=== PATIENT | female | born 1940 | race Caucasian/White ===

== ENCOUNTER 2017-10-19 10:12 | Observation (INO) | payer MEDICARE, BC ==
[~2017-10-19] VITALS: Ht 162.6 cm; Wt 82.0 kg
[2017-10-19] VITALS (11 sets, daily range): BP systolic 126–174; BP diastolic 60–87; PULSE 54–65; RESP 16–20; TEMP 98–98.6; O2SAT 93–99
[2017-10-19] MEDS ORDERED: TRIA1CAP6 PO (10:39)
[2017-10-19] MEDS ORDERED: ASPI-516 CHEW (10:39)
[2017-10-19] MEDS ORDERED: SOTA80TA PO (10:39)
--- NOTE | 2017-10-19 10:54 | PD ---
HPI Chief Complaint: Chest Pain Time Seen by Provider: 10:21 Travel History International Travel<30 days: No Contact w/Intl Traveler<30days: No Traveled to known affect area: No History of Present Illness HPI Patient 77-year-old female history of high blood pressure atrial fibrillation presents emergency department for evaluation of sharp chest pain left-sided radiating down the left arm was started at [facility] today. States she still having some mild symptoms but is starting to ease up. She has had a baby aspirin this morning. States she has never had a heart attack or cardiac catheterization but states that she did have a stress test years ago. She is also had some mild dizziness associated with the symptoms. No shortness of breath no abdominal pain nausea vomiting diarrhea constipation PFSH Past Medical History Atrial Fibrillation: Yes Cardiovascular Problems: Yes (A-FIB) Diminished Hearing: No Gastrointestinal Disorders: Yes (IBS, GI BLEED ) Hypertension: Yes Immunizations Current: Yes Tetanus Vaccination: > 5 Years Influenza Vaccination: No ?: Not Menopausal: Yes Past Surgical History Appendectomy: Yes Gynecologic Surgery: Yes (HYSTERECTOMY ) Hysterectomy: Yes (1984) Other Surgery: Yes (BREAST REDUCTION , THYROIDECTOMY LEFT LOBE) Social History Alcohol Use: No Tobacco Use: No (QUIT ) Substance Use: No Allergies-Medications (Allergen,Severity, Reaction): Coded Allergies: No Known Allergies (Unverified , 10/19/17) Reported Meds & Prescriptions Reported Meds & Active Scripts Active Reported Dyrenium (Triamterene) 50 Mg Cap 25 Mg PO DAILY Aspirin 81 Mg Chew 81 Mg CHEW DAILY Sotalol (Sotalol HCl) 80 Mg Tab Unknown Dose PO BID Review of Systems Except as stated in HPI: all other systems reviewed are Neg Physical Exam Narrative GENERAL: Well-developed well-nourished no obvious distress SKIN: Focused skin assessment warm/dry. HEAD: Atraumatic. Normocephalic. EYES: Pupils equal and round. No scleral icterus. No injection or drainage. ENT: No nasal bleeding or discharge. Mucous membranes pink and moist. NECK: Trachea midline. No JVD. CARDIOVASCULAR: Regular rate and rhythm. No murmur appreciated. No MGR, 2+ bilaterally equal pulses in all 4 extremities RESPIRATORY: No accessory muscle use. Clear to auscultation. Breath sounds equal bilaterally. GASTROINTESTINAL: Abdomen soft, non-tender, nondistended. Hepatic and splenic margins not palpable. MUSCULOSKELETAL: No obvious deformities. No clubbing. No cyanosis. No edema. NEUROLOGICAL: Awake and alert. No obvious cranial nerve deficits. Motor grossly within normal limits. Normal speech. PSYCHIATRIC: Appropriate mood and affect; insight and judgment normal. Data Data Last Documented VS Vital Signs Date Time Temp Pulse Resp B/P (MAP) Pulse Ox O2 Delivery O2 Flow Rate FiO2 10/19/17 10:39 97 Nasal Cannula 2.00 10/19/17 10:30 62 20 139/85 (103) 10/19/17 10:14 98.6 Orders Orders Electrocardiogram (10/19/17 10:21) Ckmb (Isoenzyme) Profile (10/19/17 10:21) Complete Blood Count With Diff (10/19/17 10:21) Comprehensive Metabolic Panel (10/19/17 10:21) Magnesium (Mg) (10/19/17 10:21) Prothrombin Time / Inr (Pt) (10/19/17 10:21) Act Partial Throm Time (Ptt) (10/19/17 10:21) Troponin I (10/19/17 10:21) Chest, Single Ap (10/19/17 10:21) Ecg Monitoring (10/19/17 10:21) Iv Access Insert/Monitor (10/19/17 10:21) Oximetry (10/19/17 10:21) Oxygen Administration (10/19/17 10:21) Aspirin Chew (Aspirin Chew) (10/19/17 11:15) Nitroglycerin Sl (Nitrostat Sl) (10/19/17 11:15) CKMB (10/19/17 10:40) CKMB% (10/19/17 10:40) Admit Order (Ed Use Only) (10/19/17 ) Labs Laboratory Tests Test 10/19/17 10:40 White Blood Count 6.4 TH/MM3 Red Blood Count 4.71 MIL/MM3 Hemoglobin 13.7 GM/DL Hematocrit 40.6 % Mean Corpuscular Volume 86.2 FL Mean Corpuscular Hemoglobin 29.0 PG Mean Corpuscular Hemoglobin Concent 33.6 % Red Cell Distribution Width 13.4 % Platelet Count 232 TH/MM3 Mean Platelet Volume 7.6 FL Neutrophils (%) (Auto) 55.4 % Lymphocytes (%) (Auto) 33.8 % Monocytes (%) (Auto) 7.5 % Eosinophils (%) (Auto) 2.7 % Basophils (%) (Auto) 0.6 % Neutrophils # (Auto) 3.6 TH/MM3 Lymphocytes # (Auto) 2.2 TH/MM3 Monocytes # (Auto) 0.5 TH/MM3 Eosinophils # (Auto) 0.2 TH/MM3 Basophils # (Auto) 0.0 TH/MM3 CBC Comment DIFF FINAL Differential Comment Prothrombin Time 9.9 SEC Prothromb Time International Ratio 1.0 RATIO Activated Partial Thromboplast Time 25.6 SEC Blood Urea Nitrogen 19 MG/DL Creatinine 0.73 MG/DL Random Glucose 98 MG/DL Total Protein 7.6 GM/DL Albumin 3.8 GM/DL Calcium Level 9.0 MG/DL Magnesium Level 2.1 MG/DL Alkaline Phosphatase 73 U/L Aspartate Amino Transf (AST/SGOT) 19 U/L Alanine Aminotransferase (ALT/SGPT) 23 U/L Total Bilirubin 0.4 MG/DL Sodium Level 142 MEQ/L Potassium Level 3.9 MEQ/L Chloride Level 107 MEQ/L Carbon Dioxide Level 28.3 MEQ/L Anion Gap 7 MEQ/L Estimat Glomerular Filtration Rate 78 ML/MIN Total Creatine Kinase 102 U/L Creatine Kinase MB 0.9 NG/ML Troponin I LESS THAN 0.02 NG/ML MDM Medical Decision Making Medical Screen Exam Complete: Yes Emergency Medical Condition: Yes Differential Diagnosis ACS, ME, pneumonia, chest wall pain. Narrative Course Initial EKG shows sinus rhythm, no signs of ischemia, troponin negative. Chest x-ray negative will be placed in chest pain observation unit after discussion with the patient Diagnosis Primary Impression: Chest pain Qualified Codes: R07.9 - Chest pain, unspecified Admitting Information Admitting Physician Requests: Observation Condition: Stable Norman Adkins MD Oct 19, 2017 10:54
[2017-10-19 11:07] LABS: AUTOMATED NEUTROPHIL # 3.6 TH/MM3 (1.8-7.7); BASOPHIL % 0.6 % (0.0-2.0); EOSINOPHIL # 0.2 TH/MM3 (0-0.4); EOSINOPHIL % 2.7 % (0.0-4.0); HEMATOCRIT 40.6 % (35.0-46.0); HEMOGLOBIN 13.7 GM/DL (11.6-15.3); LYMPH % 33.8 % (9.0-44.0); LYMPHOCYTE # 2.2 TH/MM3 (1.0-4.8); MEAN CELL VOLUME 86.2 FL (80.0-100.0); MEAN CORPUSCULAR HGB CONC 33.6 % (32.0-36.0); MEAN PLATELET VOLUME 7.6 FL (7.0-11.0); MONO % 7.5 % (0.0-8.0); MONOCYTE # 0.5 TH/MM3 (0-0.9); NEUT % 55.4 % (16.0-70.0); PLATELET COUNT 232 TH/MM3 (150-450); RED BLOOD COUNT 4.71 MIL/MM3 (4.00-5.30); RED CELL DISTRIBUTION WIDTH 13.4 % (11.6-17.2); WHITE BLOOD COUNT 6.4 TH/MM3 (4.0-11.0)
--- NOTE | 2017-10-19 11:14 | RADRPT ---
EXAM DATE: 10/19/2017 11:11 AM EDT AGE/SEX: 77 years / Female INDICATIONS: Chest pain CLINICAL DATA: This is the patient's initial encounter. Patient reports that signs and symptoms have been present for 1 day and indicates a pain score of 0/10. MEDICAL/SURGICAL HISTORY: . A-fib None. COMPARISON: No prior exams available for comparison. FINDINGS: A single AP view of the chest demonstrates the lungs to be symmetrically aerated without evidence of mass, infiltrate or effusion. The cardiomediastinal contours are unremarkable. Osseous structures a re intact. CONCLUSION: No acute cardiopulmonary disease Electronically signed by: Jeffrey Doe MD 10/19/2017 11:13 AM EDT
[2017-10-19 11:15] LABS: PROTHROMBIN TIME - PATIENT 9.9 SEC (9.8-11.6)
[2017-10-19] MEDS ORDERED: ASPIRIN 81 MG CHEW TAB CHEW ONE (11:15)
[2017-10-19] MEDS ORDERED: NITROGLYCERIN 0.4 MG SL 25 TABS/BTL SL ONE (11:15)
[2017-10-19 11:25] LABS: ALBUMIN 3.8 GM/DL (3.4-5.0); ALT (GPT) 23 U/L (10-53); AST (GOT) 19 U/L (15-37); BICARBONATE 28.3 MEQ/L (21.0-32.0); BLOOD UREA NITROGEN 19 MG/DL (7-18); CHLORIDE 107 MEQ/L (98-107); CREATININE 0.73 MG/DL (0.50-1.00); GLOMERULAR FILTRATION RATE 78 ML/MIN (>89); GLUCOSE,RANDOM 98 MG/DL (74-106); MAGNESIUM 2.1 MG/DL (1.5-2.5); SODIUM (NA) 142 MEQ/L (136-145)
[2017-10-19 11:29] LABS: ALKALINE PHOSPHATASE 73 U/L (45-117); TOTAL BILIRUBIN ADULT 0.4 MG/DL (0.2-1.0); TOTAL PROTEIN 7.6 GM/DL (6.4-8.2); TROPONIN I LESS THAN 0.02 NG/ML (0.02-0.05)
[2017-10-19] MEDS ORDERED: SODIUM CHLORIDE 0.9% FLUSH 10 ML FLUSH IV FLUSH PRN (13:45)
[2017-10-19] MEDS ORDERED: ACETAMINOPHEN 500 MG CPLT PO PRN (13:45)
[2017-10-19] MEDS ORDERED: NITROGLYCERIN 0.4 MG SL 25 TABS/BTL SL PRN (13:45)
--- NOTE | 2017-10-19 13:51 | EKG ---
Date Performed: 10/19/2017 Time Performed: 10:27:43 PTAGE: 77 years EKG: Sinus rhythm NORMAL ECG NO PREVIOUS TRACING DOCTOR: Santo De La Garza Interpretating Date/Time 10/19/2017 13:50:11
--- NOTE | 2017-10-19 14:43 | HHI.HP ---
HPI Primary Care Physician Mari Mckeon MD Chief Complaint chest pain History of Present Illness 77 y.o. female with hx of chronic A. Fib x 3 years presented to the ER today with complaints of chest pain. She was at [employer] this morning singing in the choir when she had a sudden onset of a sharp stabbing like pain just left of the mid sternum. This pain lasted seconds only and occurred every 5 minutes x 3. Her left arm that was holding the Hymm felt very heavy as if she were going to drop the book, that last ~ 15 minutes. She decided to ambulate outside and noticed while making her way around the [employer] she was mildly dyspneic. She denies any N/V or diaphoresis at that time. She and her decided to get checked out in our ER and on the way driving here , she developed a pressure sensation/tightening in her upper mid back between the scapulas. This was associated with a mild clammy feeling. Symptoms lasted about 20 minutes and resolved by the time she reached the ER. Currently she denies any reoccurrence of symptoms. She did not feel any palpitations with irregular or racing heart rate which she states she is sensitive to. She has only had that occur initially on diagnosis ~ 3 years ago when she met and started following with Dr. Marte in cardiology. It has happened twice since then when she forgot to take a dose of her Sotalol. Otherwise, she states her A. Fib is well controlled. She is not on anticoagulant, currently on ASA 81 mg daily which she took this am. She denies any history of known CAD. Last stress test ~ 8 years ago that she recalls, ordered by her PCP Dr. Mckeon and she believes normal. Review of Systems Consitutional: DENIES: Fatigue, Fever, Chills, Weight gain, Weight loss Eyes: DENIES: Amaurosis Fugax, Change in vision HEENT: DENIES: Lightheadedness, Change in hearing Respiratory: COMPLAINS OF: Shortness of breath, DENIES: See HPI, Cough, Snoring , Wheezing, Sputum production Cardiovascular: COMPLAINS OF: See HPI Gastrointestinal: DENIES: Nausea, Vomiting, Change in bowel habits (has hx of IBS with intermittent symptoms), Reflux, Bloody stools, Melena Genitourinary: DENIES: Urinary incontinence, Difficulty voiding Integumentary: DENIES: Rash Neurologic: DENIES: Tingling or numbness, Memory problems, Poor Balance, Stroke symptoms Musculoskeletal: COMPLAINS OF: Back pain (sciatica) Psychiatric: COMPLAINS OF: Sleep disturbances (takes supplements to help insomnia, ), DENIES: Anxiety, Depression Hematologic: DENIES: Bruising tendencies, Bleeding tendencies Endocrine: DENIES: Weight gain, Weight loss, Thyroid disease Past Family Social History Allergies: Coded Allergies: No Known Allergies (Unverified , 10/19/17) Past Medical History Atrial Fibrillation, Mild RENETTA (intolerant of CPAP), IBS, HTN, Obesity, Sciatica. GI bleed in 1988 after taking Debora Rindge. Denies Diabetes, Hyperlipidemia or known CAD. Past Surgical History Several Laparoscopies, Hysterectomy, Bilateral Oophorectomy, Breast Reduction, Left Lobe Thyroidectomy (benign), Pilonidal cysts. Reported Medications Meds as below confirmed by Eloise GILLISB: Sotalol 80 mg 1/2 tablet PO Q 12 Hrs ASA 81 mg PO daily Triamterene/HCTZ 37.5/25 mg PO Daily Reported Meds & Active Scripts Active Reported Dyrenium (Triamterene) 50 Mg Cap 25 Mg PO DAILY Aspirin 81 Mg Chew 81 Mg CHEW DAILY Sotalol (Sotalol HCl) 80 Mg Tab Unknown Dose PO BID Active Ordered Medications Current Medications Medications (Trade) Dose Ordered Sig/Karena Route Start Time Stop Time Status Last Admin (NS Flush) 2 ml UNSCH PRN IV FLUSH 10/19/17 13:45 (NS Flush) 2 ml BID IV FLUSH 10/19/17 21:00 (Tylenol) 500 mg Q4H PRN PO 10/19/17 13:45 (Nitrostat Sl) 0.4 mg Q5M PRN SL 10/19/17 13:45 (Aspirin) 325 mg DAILY PO 10/20/17 09:00 Social History , lives in [facility] with her . Tobacco early years, quit in 30s, < 1ppd on and off x 10 years. No ETOH No Substance abuse. Physical Exam Vital Signs Vital Signs Date Time Temp Pulse Resp B/P (MAP) Pulse Ox O2 Delivery O2 Flow Rate FiO2 10/19/17 14:01 97 21 10/19/17 10:39 97 Nasal Cannula 2.00 10/19/17 10:31 97 Room Air 10/19/17 10:30 62 20 139/85 (103) 98 10/19/17 10:14 98.6 64 19 164/77 (106) 97 Physical Exam GENERAL: Very pleasant 77 y.o. mildly obese Female who appears several years younger than her stated age, in no acute distress. at bedside very pleasant. SKIN: Warm and dry. HEAD: Atraumatic. Normocephalic. EYES: Pupils equal and round. No scleral icterus. No injection or drainage. ENT: No nasal bleeding or discharge. Mucous membranes pink and moist. NECK: Trachea midline. No JVD. No Carotid bruits. CARDIOVASCULAR: Regular rate and rhythm. S1 and S2, No S3, S4, rub, gallop or appreciable murmur. RESPIRATORY: No accessory muscle use. Clear to auscultation. Breath sounds equal bilaterally. GASTROINTESTINAL: Abdomen softly obese, non-tender, nondistended. Hepatic and splenic margins not palpable. MUSCULOSKELETAL: Extremities without clubbing, cyanosis, or edema. No obvious deformities. Area of point tenderness at costochondral border upper to mid left sternum. No suspicious rashes. Mid thoracic back between scapulas palpated without any tenderness. NEUROLOGICAL: Awake and alert. No obvious cranial nerve deficits. Motor grossly within normal limits. Five out of 5 muscle strength in the arms and legs. Normal speech. PSYCHIATRIC: Appropriate mood and affect; insight and judgment normal. EXTREMITIES: Moving all extremities well, no lower leg edema. Laboratory Laboratory Tests Test 10/19/17 10:40 White Blood Count 6.4 Red Blood Count 4.71 Hemoglobin 13.7 Hematocrit 40.6 Mean Corpuscular Volume 86.2 Mean Corpuscular Hemoglobin 29.0 Mean Corpuscular Hemoglobin Concent 33.6 Red Cell Distribution Width 13.4 Platelet Count 232 Mean Platelet Volume 7.6 Neutrophils (%) (Auto) 55.4 Lymphocytes (%) (Auto) 33.8 Monocytes (%) (Auto) 7.5 Eosinophils (%) (Auto) 2.7 Basophils (%) (Auto) 0.6 Neutrophils # (Auto) 3.6 Lymphocytes # (Auto) 2.2 Monocytes # (Auto) 0.5 Eosinophils # (Auto) 0.2 Basophils # (Auto) 0.0 CBC Comment DIFF FINAL Differential Comment Prothrombin Time 9.9 Prothromb Time International Ratio 1.0 Activated Partial Thromboplast Time 25.6 Blood Urea Nitrogen 19 Creatinine 0.73 Random Glucose 98 Total Protein 7.6 Albumin 3.8 Calcium Level 9.0 Magnesium Level 2.1 Alkaline Phosphatase 73 Aspartate Amino Transf (AST/SGOT) 19 Alanine Aminotransferase (ALT/SGPT) 23 Total Bilirubin 0.4 Sodium Level 142 Potassium Level 3.9 Chloride Level 107 Carbon Dioxide Level 28.3 Anion Gap 7 Estimat Glomerular Filtration Rate 78 Total Creatine Kinase 102 Creatine Kinase MB 0.9 Troponin I LESS THAN 0.02 Result Diagram: 10/19/17 1040 10/19/17 1040 Imaging Last 24 hours Impressions Chest X-Ray 10/19/17 1021 Signed Impressions: CONCLUSION: No acute cardiopulmonary disease Course EKG w/ NSR with NS T wave changes. Caprini VTE Risk Assessment Caprini VTE Risk Assessment: No/Low Risk (score <= 1) Caprini Risk Assessment Model Point Value = 1 Point Value = 2 Point Value = 3 Point Value = 5 Age 41-60 Minor surgery BMI > 25 kg/m2 Swollen legs Varicose veins or History of unexplained or recurrent spontaneous Oral contraceptives or hormone replacement Sepsis (< 1 month) Serious lung disease, including pneumonia (< 1 month) Abnormal pulmonary function Acute myocardial infarction Congestive heart failure (< 1 month) History of inflammatory bowel disease Medical patient at bed rest Age 61-74 Arthroscopic surgery Major open surgery (> 45 min) Laparoscopic surgery (> 45 min) Malignancy Confined to bed (> 72 hours) Immobilizing plaster cast Central venous access Age >= 75 History of VTE Family history of VTE Factor V Leiden Prothrombin [id number] Lupus anticoagulant Anticardiolipin antibodies Elevated serum homocysteine Heparin-induced thrombocytopenia Other congenital or acquired thrombophilia Stroke (< 1 month) Elective arthroplasty Hip, pelvis, or leg fracture Acute spinal cord injury (< 1 month) Prophylaxis Regimen Total Risk Factor Score Risk Level Prophylaxis Regimen 0-1 Low Early ambulation 2 Moderate Order ONE of the following: *Sequential Compression Device (SCD) *Heparin 5000 units SQ BID 3-4 Higher Order ONE of the following medications: *Heparin 5000 units SQ TID *Enoxaparin/Lovenox 40 mg SQ daily (WT < 150 kg, CrCl > 30 mL/min) *Enoxaparin/Lovenox 30 mg SQ daily (WT < 150 kg, CrCl > 10-29 mL/min) *Enoxaparin/Lovenox 30 mg SQ BID (WT < 150 kg, CrCl > 30 mL/min) AND/OR *Sequential Compression Device (SCD) 5 or more Highest Order ONE of the following medications: *Heparin 5000 units SQ TID (Preferred with Epidurals) *Enoxaparin/Lovenox 40 mg SQ daily (WT < 150 kg, CrCl > 30 mL/min) *Enoxaparin/Lovenox 30 mg SQ daily (WT < 150 kg, CrCl > 10-29 mL/min) *Enoxaparin/Lovenox 30 mg SQ BID (WT < 150 kg, CrCl > 30 mL/min) AND *Sequential Compression Device (SCD) Assessment and Plan Problem List: (1) Chest pain ICD Codes: R07.9 - Chest pain, unspecified Status: Acute Plan: #1) Chest pain: anterior chest likely musculoskeletal etiology. However, upper back pressure and left arm heaviness concerning for possible ischemia related. Recommend observation overnight and serial EKGs/enzymes for ACS rule out. If patient rules out with negative enzymes/EKGs then proceed with Lexiscan Nuclear stress test for evaluation for ischemia. #2) Paroxysmal Atrial Fib: In NSR, well controlled with Sotalol. No symptoms today. Telemetry monitoring overnight. Ensure patient receives her usual dosages of Sotalol as ordered. Continue ASA. Patient is already discussing consideration of Anticoagulants w/ Dr. Marte/Xin. [id number] score at least 4. Assessment and Plan #1) Chest pain: anterior chest likely musculoskeletal etiology. However, upper back pressure and left arm heaviness concerning for possible ischemia related. Recommend observation overnight and serial EKGs/enzymes for ACS rule out. If patient rules out with negative enzymes/EKGs then proceed with Lexiscan Nuclear stress test for evaluation for ischemia. #2) Paroxysmal Atrial Fib: In NSR, well controlled with Sotalol. No symptoms today. Telemetry monitoring overnight. Ensure patient receives her usual dosages of Sotalol as ordered. Continue ASA. Patient is already discussing consideration of Anticoagulants w/ Dr. Marte/Xin. [id number] score at least 4. Code Status Full Code Discussed Condition With Dee Osborne Oct 19, 2017 14:43
[2017-10-19] MEDS ORDERED: PILL SPLITTER OTHER PRN (14:45)
--- NOTE | 2017-10-19 15:21 | PD.CARD.PN ---
Subjective Subjective Remarks Patient was presented by nurse practitioner, documentation was reviewed, radiographic and laboratory data was reviewed and the patient was seen and examined personally. Her history is certainly suggestive of ischemia although other etiologic causes have not been ruled out as yet. Patient will be evaluated using standard chest pain center protocol to rule out ACS. If this is negative she will be evaluated with a nuclear stress test in the morning. Objective Medications Current Medications Medications (Trade) Dose Ordered Sig/Karena Route Start Time Stop Time Status Last Admin (NS Flush) 2 ml UNSCH PRN IV FLUSH 10/19/17 13:45 (NS Flush) 2 ml BID IV FLUSH 10/19/17 21:00 (Tylenol) 500 mg Q4H PRN PO 10/19/17 13:45 (Nitrostat Sl) 0.4 mg Q5M PRN SL 10/19/17 13:45 (Aspirin) 325 mg DAILY PO 10/20/17 09:00 (Betapace) 40 mg Q12HR PO 10/19/17 21:00 (Maxzide 37.5-25 Mg) 1 tab DAILY PO 10/20/17 09:00 (Pill Splitter) 1 ea UNSCH PRN OTHER 10/19/17 14:45 Vital Signs / I&O Vital Signs Date Time Temp Pulse Resp B/P (MAP) Pulse Ox O2 Delivery O2 Flow Rate FiO2 10/19/17 14:01 97 21 10/19/17 10:39 97 Nasal Cannula 2.00 10/19/17 10:31 97 Room Air 10/19/17 10:30 62 20 139/85 (103) 98 10/19/17 10:14 98.6 64 19 164/77 (106) 97 Laboratory Laboratory Tests Test 10/19/17 10:40 10/19/17 14:58 White Blood Count 6.4 TH/MM3 Red Blood Count 4.71 MIL/MM3 Hemoglobin 13.7 GM/DL Hematocrit 40.6 % Mean Corpuscular Volume 86.2 FL Mean Corpuscular Hemoglobin 29.0 PG Mean Corpuscular Hemoglobin Concent 33.6 % Red Cell Distribution Width 13.4 % Platelet Count 232 TH/MM3 Mean Platelet Volume 7.6 FL Neutrophils (%) (Auto) 55.4 % Lymphocytes (%) (Auto) 33.8 % Monocytes (%) (Auto) 7.5 % Eosinophils (%) (Auto) 2.7 % Basophils (%) (Auto) 0.6 % Neutrophils # (Auto) 3.6 TH/MM3 Lymphocytes # (Auto) 2.2 TH/MM3 Monocytes # (Auto) 0.5 TH/MM3 Eosinophils # (Auto) 0.2 TH/MM3 Basophils # (Auto) 0.0 TH/MM3 CBC Comment DIFF FINAL Differential Comment Prothrombin Time 9.9 SEC Prothromb Time International Ratio 1.0 RATIO Activated Partial Thromboplast Time 25.6 SEC Blood Urea Nitrogen 19 MG/DL Creatinine 0.73 MG/DL Random Glucose 98 MG/DL Total Protein 7.6 GM/DL Albumin 3.8 GM/DL Calcium Level 9.0 MG/DL Magnesium Level 2.1 MG/DL Alkaline Phosphatase 73 U/L Aspartate Amino Transf (AST/SGOT) 19 U/L Alanine Aminotransferase (ALT/SGPT) 23 U/L Total Bilirubin 0.4 MG/DL Sodium Level 142 MEQ/L Potassium Level 3.9 MEQ/L Chloride Level 107 MEQ/L Carbon Dioxide Level 28.3 MEQ/L Anion Gap 7 MEQ/L Estimat Glomerular Filtration Rate 78 ML/MIN Total Creatine Kinase 102 U/L Creatine Kinase MB 0.9 NG/ML Troponin I LESS THAN 0.02 NG/ML Imaging Last 24 hours Impressions Chest X-Ray 10/19/17 1021 Signed Impressions: CONCLUSION: No acute cardiopulmonary disease Assessment and Plan Assessment and Plan Patient is currently stable will be ruled out for ACS using standard protocol. If she is negative through the night she will be evaluated with a nuclear stress test in the morning. If she shows no ischemia she will be discharged back to the care of her primary care physician and Dr. Sandoval her client reporting associate Code Status Full code Discussed Condition With Discussed with nurse practitioner and patient Mika Galvan MD Oct 19, 2017 15:21
[2017-10-19 15:57] LABS: TROPONIN I LESS THAN 0.02 NG/ML (0.02-0.05)
[2017-10-19] MEDS: SOTALOL HCL 80 MG TAB PO SCH (18:05)
[2017-10-19 19:09] LABS: TROPONIN I LESS THAN 0.02 NG/ML (0.02-0.05)
[2017-10-19] MEDS ORDERED: SOTALOL HCL 80 MG TAB PO SCH (21:00)
[2017-10-19] MEDS: SODIUM CHLORIDE 0.9% FLUSH 10 ML FLUSH IV FLUSH SCH (21:48)
[2017-10-20] VITALS (7 sets, daily range): BP systolic 124–135; BP diastolic 65–77; PULSE 56–65; RESP 16–17; TEMP 97.4–98.1; O2SAT 95–97
[2017-10-20] MEDS: SOTALOL HCL 80 MG TAB PO SCH (06:25)
--- NOTE | 2017-10-20 08:19 | PD.CARD.PN ---
Subjective Subjective Remarks No further chest discomfort. No complaints overnight. Objective Medications Current Medications Medications (Trade) Dose Ordered Sig/Karena Route Start Time Stop Time Status Last Admin (NS Flush) 2 ml UNSCH PRN IV FLUSH 10/19/17 13:45 (NS Flush) 2 ml BID IV FLUSH 10/19/17 21:00 10/19/17 21:48 (Tylenol) 500 mg Q4H PRN PO 10/19/17 13:45 (Nitrostat Sl) 0.4 mg Q5M PRN SL 10/19/17 13:45 (Aspirin) 325 mg DAILY PO 10/20/17 09:00 (Pill Splitter) 1 ea UNSCH PRN OTHER 10/19/17 14:45 (Maxzide 37.5-25 Mg) 0.5 tab DAILY PO 10/20/17 09:00 (Betapace) 40 mg Q12H PO 10/19/17 18:00 10/20/17 06:25 Vital Signs / I&O Vital Signs Date Time Temp Pulse Resp B/P (MAP) Pulse Ox O2 Delivery O2 Flow Rate FiO2 10/20/17 07:36 97 21 10/20/17 07:00 97.7 57 16 124/65 (84) 95 10/20/17 06:33 56 10/20/17 04:29 98.1 63 16 128/77 (94) 97 10/20/17 00:23 97.4 57 16 134/77 (96) 95 10/19/17 23:00 64 10/19/17 20:22 98.0 63 17 126/72 (90) 93 10/19/17 19:55 94 10/19/17 16:29 98.0 65 18 174/87 (116) 98 10/19/17 16:24 56 16 130/73 (92) 97 10/19/17 15:00 56 16 140/60 (86) 99 Nasal Cannula 2.00 10/19/17 14:01 97 21 10/19/17 14:00 54 16 143/72 (95) 97 Nasal Cannula 2.00 10/19/17 13:00 60 16 140/70 (93) 97 Nasal Cannula 2.00 10/19/17 10:39 97 Nasal Cannula 2.00 10/19/17 10:31 97 Room Air 10/19/17 10:30 62 20 139/85 (103) 98 10/19/17 10:14 98.6 64 19 164/77 (106) 97 Physical Exam GENERAL: Alert WN, WD, NAD, pleasant, elderly female HEAD: NC, AT CV: RRR, without murmur, rub, gallop, or S3-S4. RESP: Clear lungs throughout bilateral, no crackles, wheeze, rhonchi, symmetrical chest rise, nonlabored, able to speak in full sentences EXT: Pulses +2x4, no dependent edema MS: Normal tone x4 extremities, no obvious deformities, full range of motion NEURO: CN II through CN XII grossly intact, motor strength 5/5 PSYCH: A+O x3, pleasant affect, appropriate speech, mood, insight and judgment SKIN: Normal turgor, normal texture Laboratory Laboratory Tests Test 10/19/17 10:40 10/19/17 14:58 10/19/17 18:15 White Blood Count 6.4 TH/MM3 Red Blood Count 4.71 MIL/MM3 Hemoglobin 13.7 GM/DL Hematocrit 40.6 % Mean Corpuscular Volume 86.2 FL Mean Corpuscular Hemoglobin 29.0 PG Mean Corpuscular Hemoglobin Concent 33.6 % Red Cell Distribution Width 13.4 % Platelet Count 232 TH/MM3 Mean Platelet Volume 7.6 FL Neutrophils (%) (Auto) 55.4 % Lymphocytes (%) (Auto) 33.8 % Monocytes (%) (Auto) 7.5 % Eosinophils (%) (Auto) 2.7 % Basophils (%) (Auto) 0.6 % Neutrophils # (Auto) 3.6 TH/MM3 Lymphocytes # (Auto) 2.2 TH/MM3 Monocytes # (Auto) 0.5 TH/MM3 Eosinophils # (Auto) 0.2 TH/MM3 Basophils # (Auto) 0.0 TH/MM3 CBC Comment DIFF FINAL Differential Comment Prothrombin Time 9.9 SEC Prothromb Time International Ratio 1.0 RATIO Activated Partial Thromboplast Time 25.6 SEC Blood Urea Nitrogen 19 MG/DL Creatinine 0.73 MG/DL Random Glucose 98 MG/DL Total Protein 7.6 GM/DL Albumin 3.8 GM/DL Calcium Level 9.0 MG/DL Magnesium Level 2.1 MG/DL Alkaline Phosphatase 73 U/L Aspartate Amino Transf (AST/SGOT) 19 U/L Alanine Aminotransferase (ALT/SGPT) 23 U/L Total Bilirubin 0.4 MG/DL Sodium Level 142 MEQ/L Potassium Level 3.9 MEQ/L Chloride Level 107 MEQ/L Carbon Dioxide Level 28.3 MEQ/L Anion Gap 7 MEQ/L Estimat Glomerular Filtration Rate 78 ML/MIN Total Creatine Kinase 102 U/L 126 U/L 88 U/L Creatine Kinase MB 0.9 NG/ML 0.7 NG/ML Troponin I LESS THAN 0.02 NG/ML LESS THAN 0.02 NG/ML LESS THAN 0.02 NG/ML Imaging Last 24 hours Impressions Chest X-Ray 10/19/17 1021 Signed Impressions: CONCLUSION: No acute cardiopulmonary disease Assessment and Plan Problem List: (1) Chest pain ICD Codes: R07.9 - Chest pain, unspecified Status: Acute Assessment and Plan ACS ruled out with 3 sets of EKGs and cardiac enzymes. Previously evaluated by Dr Galvan. Continue with plan for lexiscan today. If unremarkable, plans to discharge home with follow up with PCP. Patient agreeable to plan of care. Problem Qualifiers (1) Chest pain: Qualified Codes: R07.9 - Chest pain, unspecified Lashay Goodman Oct 20, 2017 08:19
[2017-10-20] MEDS ORDERED: ASPIRIN 325 MG TAB PO SCH (09:00)
[2017-10-20] MEDS ORDERED: TRIAMTERENE/HCTZ 37.5 MG/25 MG TAB PO SCH ×2 (09:00)
[2017-10-20] MEDS ORDERED: REGADENOSON INJ 0.4 MG/5 ML SYR ONE (09:21)
[2017-10-20] MEDS: SODIUM CHLORIDE 0.9% FLUSH 10 ML FLUSH IV FLUSH SCH (11:07)
--- NOTE | 2017-10-20 11:12 | RADRPT ---
EXAM DATE: 10/20/2017 10:30 AM EDT AGE/SEX: 77 years / Female INDICATIONS:Angina. Atrial fibrillation Left sided chest pain. CLINICAL DATA: This is the patient's initial encounter. Patient reports that signs and symptoms have been present for 1 day and indicates a pain score of 5/10. MEDICAL/SURGICAL HISTORY: Hypertension. Thyroidectomy. Hysterectomy. COMPARISON: No prior exams available for comparison. No external comparison. DOSE: 8.1 mCi Tc 99m Myoview at rest 26.3 mCi [id number] at stress 0.4 mg Lexiscan STRESS SYMPTOMS: Headache. EJECTION FRACTION: >70 % TECHNIQUE: The patient underwent pharmacologic stress with infusion of prescribed dose. Continuous ECG tracing was monitored during stress. Gated SPECT imaging was performed after stress and conventi onal SPECT imaging was performed at rest. The examination was performed on a SPECT/CT scanner, both attenuation and non-corrected datasets were reviewed. FINDINGS: Distribution: The maximum perfused segment at stress is in the lateral wall. Perfusion Study: The pattern of perfusion at stress is within normal limits. Gated Study: There are intact wall motion and wall thickening without hypokinetic or dyskinetic segm ents. The ejection fraction is calculated at >70%. RISK CATEGORY: Low (<1% Annual Motality Rate) CONCLUSION: Negative examination. Electronically signed by: Juan Trotter MD 10/20/2017 11:11 AM EDT
--- NOTE | 2017-10-20 11:24 | HHI.DCPOC ---
Discharge Care Plan Diagnosis: (1) Chest pain Goals to Promote Your Health * To prevent worsening of your condition and complications * To maintain your health at the optimal level Directions to Meet Your Goals Take your medications as prescribed Follow your dietary instruction Follow activity as directed Keep your appointments as scheduled Take your immunizations and boosters as scheduled If your symptoms worsen call your PCP, if no PCP go to Urgent Care Center or Emergency Room Smoking is Dangerous to Your Health. Avoid second hand smoke Call the 24-hour hour crisis hotline for domestic abuse at Lashay Goodman Oct 20, 2017 11:24
--- NOTE | 2017-10-20 11:32 | HHI.DS ---
Discharge Summary Admission Date Oct 19, 2017 at 12:56 Discharge Date: Oct 20, 2017 Admitting Diagnosis Chest Pain (1) Chest pain ICD Codes: R07.9 - Chest pain, unspecified Status: Acute Brief History 77-year-old female with history of paroxysmal A. fib presents emergency room for further evaluation of chest pain. Location substernal. Characterized stabbing. No radiation. Easily reproduced with palpation. Chest pain center. ACS ruled out with 3 sets of EKGs and cardiac enzymes. Seen and evaluated by Dr. Mika Galvan. Proceed with Lexiscan in a.m. conclusions no perfusion defects, EF 70%. CBC/BMP: 10/19/17 1040 10/19/17 1040 Significant Findings Laboratory Tests Test 10/19/17 10:40 10/19/17 14:58 10/19/17 18:15 Blood Urea Nitrogen 19 MG/DL (7-18) Estimat Glomerular Filtration Rate 78 ML/MIN (>89) Troponin I LESS THAN 0.02 NG/ML LESS THAN 0.02 NG/ML LESS THAN 0.02 NG/ML Imaging Last 48 hours Impressions Myocardial Perfusion Scan Nuc Med 10/20/17 0000 Signed Impressions: CONCLUSION: Negative examination. Chest X-Ray 10/19/17 1021 Signed Impressions: CONCLUSION: No acute cardiopulmonary disease PE at Discharge GENERAL: Alert WN, WD, NAD, pleasant, elderly female HEAD: NC, AT CV: RRR, without murmur, rub, gallop, no JVD, or S3-S4. RESP: Clear lungs throughout bilateral, no crackles, wheeze, rhonchi, symmetrical chest rise, nonlabored, able to speak in full sentences PSYCH: A+O x3, pleasant affect, appropriate speech, mood, insight and judgment SKIN: Normal turgor, normal texture Pt Condition on Discharge: Good Discharge Disposition: Discharge Home Discharge Instructions DIET: Follow Instructions for: Heart Healthy Diet Activities you can perform: Regular-No Restrictions Lashay Goodman Oct 20, 2017 11:32
--- NOTE | 2017-10-21 16:42 | EKG ---
Date Performed: 10/19/2017 Time Performed: 18:20:29 PTAGE: 77 years EKG: SINUS BRADYCARDIA BORDERLINE ECG PREVIOUS TRACING : 10/19/2017 14.55 Since previous tracing, no significant change noted DOCTOR: Josh Nichole Interpretating Date/Time 10/21/2017 16:41:52
--- NOTE | 2017-10-21 16:42 | EKG ---
Date Performed: 10/19/2017 Time Performed: 14:55:27 PTAGE: 77 years EKG: SINUS BRADYCARDIA INFERIOR MYOCARDIAL INFARCTION ABNORMAL ECG PREVIOUS TRACING : 10/19/2017 10.27 Since previous tracing, no significant change noted DOCTOR: Josh Nichole Interpretating Date/Time 10/21/2017 16:42:21
--- NOTE | 2017-10-22 12:12 | TR ---
Date Performed: 10/20/2017 Time Performed: 09:29:36 DOCTOR: Josh Nichole DRUG LIST: CLINICAL HISTORY: REASON FOR TEST: REASON FOR ENDING: OBSERVATION: CONCLUSION: COMMENTS: Lexiscan stress test was performed under standard four minute protocol. Radionuclide was injected one minute prior to ending the test. No electrocardiographic abormalities were present t o suggest ischemia. Nuclear imaging and interpretation are pending.
== END 2017-10-20 13:30 | disposition home or self-care (01) ==
LOC: NEPC 10:12 → NEDA 12:56 → NEPHCDU 16:26
PROVIDERS: ADMIT Internal Medicine Interventional Cardiology; ATTEND Internal Medicine Interventional Cardiology
DX: R07.9 Chest pain, unspecified (principal); M79.622 Pain in left upper arm; R42 Dizziness and giddiness; K58.9 Irritable bowel syndrome, unspecified; K92.2 Gastrointestinal hemorrhage, unspecified; I10 Essential (primary) hypertension; I48.2 Chronic atrial fibrillation; R06.00 Dyspnea, unspecified; R06.02 Shortness of breath; M54.30 Sciatica, unspecified side; G47.33 Obstructive sleep apnea (adult) (pediatric); Z87.891 Personal history of nicotine dependence; Z90.710 Acquired absence of both cervix and uterus; R00.1 Bradycardia, unspecified; R94.31 Abnormal electrocardiogram [ECG] [EKG]
CPT/HCPCS: 71045; 78452; 80053; 82550; 82552; 83735; 84484; 85025; 85610; 85730; 93005; 93017; 99285; A9502; G0378; J2785